=== PATIENT | male | born 1985 | race Caucasian/White ===

== ENCOUNTER 2017-03-10 19:09 | Emergency (ER) | payer SELFPAY ==
[2017-03-10 19:10] VITALS: BP 118/74; PULSE 53; RESP 16; TEMP 97.8; O2SAT 100
--- NOTE | 2017-03-10 20:28 | RADRPT ---
EXAM DATE/TIME: 03/10/2017 19:44 [facility] COMPARISON: No previous studies available for comparison. INDICATIONS : Fall from skateboard today, laceration to posterior head. RADIATION DOSE: 56.35 CTDIvol (mGy) MEDICAL HISTORY : None SURGICAL HISTORY : None. ENCOUNTER: Initial ACUITY: 1 day PAIN SCALE: 6/10 LOCATION: Bilateral occipital head TECHNIQUE: Multiple contiguous axial images were obtained of the head. Using automated exposure control and adj ustment of the mA and/or kV according to patient size, radiation dose was kept as low as reasonably a chievable to obtain optimal diagnostic quality images. DICOM format image data is available electro nically for review and comparison. FINDINGS: CEREBRUM: The ventricles are normal for age. No evidence of midline shift, mass lesion, hemorrhage or acute in farction. No extra-axial fluid collections are seen. POSTERIOR FOSSA: The cerebellum and brainstem are intact. The 4th ventricle is midline. The cerebellopontine angle i s unremarkable. EXTRACRANIAL: The visualized portion of the orbits is intact. SKULL: The calvaria is intact. No evidence of skull fracture. CONCLUSION: 1. No acute intracranial abnormalities. Left maxillary sinusitis. Srikanth Eubanks MD on March 10, 2017 at 20:25 Board Certified Radiologist. This report was verified electronically.
--- NOTE | 2017-03-10 20:30 | RADRPT ---
EXAM DATE/TIME: 03/10/2017 19:47 [facility] COMPARISON: No previous studies available for comparison. INDICATIONS : Fall from skateboard today, laceration to posterior head. RADIATION DOSE: 27.03 CTDIvol (mGy) MEDICAL HISTORY : None SURGICAL HISTORY : None. ENCOUNTER: Initial ACUITY: 1 day PAIN SCALE: 5/10 LOCATION: Bilateral neck TECHNIQUE: Volumetric scanning of the cervical spine was performed. Multiplanar reconstructions in the sagittal, coronal and oblique axial planes were performed. Using automated exposure control and adjustment o f the mA and/or kV according to patient size, radiation dose was kept as low as reasonably achievable to obtain optimal diagnostic quality images. DICOM format image data is available electronically f or review and comparison. FINDINGS: VERTEBRAE: Normal vertebral body height. ALIGNMENT: No evidence of subluxation. C2-C3: The bony spinal canal is normal in size. No evidence of disc bulge or herniation. The neural forami na are bilaterally patent. C3-C4: The bony spinal canal is normal in size. No evidence of disc bulge or herniation. The neural forami na are bilaterally patent. C4-C5: The bony spinal canal is normal in size. No evidence of disc bulge or herniation. The neural forami na are bilaterally patent. C5-C6: The bony spinal canal is normal in size. No evidence of disc bulge or herniation. The neural forami na are bilaterally patent. C6-C7: The bony spinal canal is normal in size. No evidence of disc bulge or herniation. The neural forami na are bilaterally patent. C7-T1: The bony spinal canal is normal in size. No evidence of disc bulge or herniation. The neural forami na are bilaterally patent. CONCLUSION: Normal examination for a patient of this age. Srikanth Eubanks MD on March 10, 2017 at 20:26 Board Certified Radiologist. This report was verified electronically.
--- NOTE | 2017-03-11 00:48 | PD ---
HPI Chief Complaint: Head Injury Time Seen by Provider: 00:47 Travel History International Travel<30 days: No Contact w/Intl Traveler<30days: No Traveled to known affect area: No History of Present Illness HPI The patient is a 31 year old male who presents to the [facility] emergency department with a history of hitting his head while skating at the park at 6: 30PM. He was on a skateboard going down into a pool to do a trick. That is the last thing that he can recall. He reports that he woke up with this had bleeding. He is unsure how long loss of consciousness was for. He reports that he has right buttock pain since the accident. He denies having any difficulty walking or weightbearing. He denies having any numbness or tingling to his extremities. He denies having any weakness of his extremities. He denies having any vomiting. Otherwise on review of systems, he denies having any recent fevers, cough, congestion, chest pain, shortness of breath, abdominal pain,diarrhea, urinary symptoms, or other neurologic symptoms. [facility] Past Medical History Narrative Medical The patient's past medical history is reportedly none. Past Surgical History Surgical History: No Previous Surgery Social History Alcohol Use: Yes (1-2 xper week.) Tobacco Use: No Allergies-Medications (Allergen,Severity, Reaction): Coded Allergies: No Known Allergies (Verified Allergy, Unknown, 06/01/06) Reported Meds & Prescriptions Reported Meds & Active Scripts Active Review of Systems Except as stated in HPI: all other systems reviewed are Neg General / Constitutional: No: Fever Eyes: No: Visual changes HENT: Positive: Headaches, No: Neck Pain Cardiovascular: No: Chest Pain or Discomfort Respiratory: No: Shortness of Breath Gastrointestinal: No: Abdominal Pain Genitourinary: No: Dysuria Musculoskeletal: No: Pain Skin: No Rash Neurologic: No: Weakness Psychiatric: No: Depression Endocrine: No: Polydipsia Hematologic/Lymphatic: No: Easy Bruising Physical Exam Narrative Head and Neck exam: Head is normocephalic with evidence of trauma to the right occiput. A curvilinear laceration is noted that is approximately 4 cm. No step off or crepitus. Eyes: EOMI, pupils are equal round and reactive to light. Nose : Midline septum with pink mucous membranes Mouth: Dentition unremarkable. Moist mucus membranes. Posterior oropharynx is not erythematous. No tonsillar hypertrophy. Uvula midline. Airway patent.Neck: No palpable lymphadenopathy. No nuchal rigidity. No thyromegaly. Cardiovascular: Regular rate and rhythm without murmurs, gallops, or rubs. No pulse deficit to the extremities. Lungs: Clear to auscultation bilaterally. No wheezes, rhonchi, or rales.Abdomen: Soft, without tenderness to palpation in all 4 quadrants of the abdomen. No guarding, rebound, or rigidity. Negative [place] sign. Extremities: No clubbing, cyanosis , or edema. 2+ pulses in all 4 extremities.Back: No spinous process tenderness to palpation. No stepoff or crepitus. He has left buttock TTP. No erythema or ecchymosis. No costovertebral angle tenderness to palpation.Neurologic Exam: Cranial nerves 2-12 were intact on exam. Strength is 5/5 in all 4 extremities. No sensory deficits noted. He has a normal steady gait. Skin Exam: No rash noted. Intact skin that is warm and dry. Data Data Last Documented VS Vital Signs Date Time Temp Pulse Resp B/P (MAP) Pulse Ox O2 Delivery O2 Flow Rate FiO2 03/11/17 02:25 03/10/17 19:10 97.8 53 16 100 Room Air Orders Orders Ct Brain W/O Iv Contrast(Rout) (03/10/17 ) Ct Cerv Spine W/O Contrast (03/10/17 ) [id number] (Booster) Inj (Boostrix (03/11/17 02:15) Cephalexin (Keflex) (03/11/17 02:15) Acetaminophen (Tylenol) (03/11/17 02:15) MDM Medical Decision Making Medical Screen Exam Complete: Yes Emergency Medical Condition: Yes Medical Record Reviewed: Yes Interpretation(s) Last Impressions Head CT 03/10/17 0000 Signed Impressions: Service Date/Time: Friday, March 10, 2017 19:44 - CONCLUSION: 1. No acute intracranial abnormalities. Left maxillary sinusitis. Srikanth Eubanks MD Cervical Spine CT 03/10/17 0000 Signed Impressions: Service Date/Time: Friday, March 10, 2017 19:47 - CONCLUSION: Normal examination for a patient of this age. Srikanth Eubanks MD Differential Diagnosis Intracranial hemorrhage, versus cervical spine injury, versus scalp laceration, versus scalp contusion Narrative Course During the course of the patients emergency department visit, the patients history, examination, and differential diagnosis were reviewed with the patient. The patient was placed on a division supervisor with oximetry and frequent blood pressure monitoring. The patient had a CT scan of the head and neck ordered. The patient was initially provided an update his tetanus as he reports that it is not up-to-date. Keflex 500 by mouth 1. Tylenol for headache. The nurse practitioner, Taisha Pineda was consultative for wound irrigation and repair. She repaired the wound. Radiology studies were reviewed and remarkable for a CT scan of the brain that shows no acute intracranial abnormality, left maxillary sinusitis. CT scan of the C-spine shows no acute abnormality. The patient is resting comfortably and feels better, is alert and in no distress. The patients results and examination findings were discussed with the patient. The repeat examination is unremarkable and benign. The history, exam, diagnostic testing, and current condition do not suggest any significant pathology to warrant further testing, continued ED treatment, admission, or surgical evaluation at this point. The vital signs have been stable. The patient does not have uncontrollable pain, intractable vomiting, or other significant symptoms. The patient's condition is stable and appropriate for discharge. The patient will pursue further outpatient evaluation with a primary care physician or other designated or consulting physician as indicated in the discharge instructions. The patient expressed understanding and was agreeable with this plan. Diagnosis Primary Impression: Head injury Qualified Codes: S09.90XA - Unspecified injury of head, initial encounter Additional Impression: Occipital scalp laceration Qualified Codes: S01.01XA - Laceration without foreign body of scalp, initial encounter Referrals: [facility] 2 days Patient Instructions: General Instructions, Head Injury (ED) Departure Forms: Tests/Procedures, Work Release Enter return to work date: Mar 13, 2017 Med/Other Pt SpecificInfo: No Meds Exist/No RX given Disposition: 01 DISCHARGE HOME Condition: Stable Mariama Pulido MD Mar 11, 2017 00:48
[2017-03-11] MEDS ORDERED: ACETAMINOPHEN 325 MG TAB PO ONE (02:15)
[2017-03-11] MEDS ORDERED: DIPHTH/TETANUS/ACEL PERTUSSIS (BOOSTER) 0.5 ML VIAL/PFS IM ONE (02:15)
[2017-03-11] MEDS ORDERED: CEPHALEXIN MONOHYDRATE 500 MG CAP PO ONE (02:15)
--- NOTE | 2017-03-11 05:08 | PD ---
Physical Exam Time Seen by Provider: 05:07 Data Data Last Documented VS Vital Signs Date Time Temp Pulse Resp B/P (MAP) Pulse Ox O2 Delivery O2 Flow Rate FiO2 03/11/17 02:25 03/10/17 19:10 97.8 53 16 100 Room Air Orders Orders Ct Brain W/O Iv Contrast(Rout) (03/10/17 ) Ct Cerv Spine W/O Contrast (03/10/17 ) [id number]-Pkrtmt (Booster) Inj (Boostrix (03/11/17 02:15) Cephalexin (Keflex) (03/11/17 02:15) Acetaminophen (Tylenol) (03/11/17 02:15) MDM Medical Record Reviewed: Yes Supervised Visit with CHRISSIE: No Procedures Procedure Narrative LACERATION LOCATION: Posterior scalp LENGTH: 4 centimeter NUMBER OF STITCHES/RAHEL: 4 [place] REPAIR: The area of the laceration was prepped with Betadine and sterilely draped. The wound was copiously irrigated and explored without evidence of foreign body, tendon injury or neurovascular injury. The wound was closed using rahel. This was a single layer repair. A sterile dressing was applied. The patient was advised to keep the dressing clean and dry. Patient tolerated the procedure well. Diagnosis Primary Impression: Head injury Additional Impression: Occipital scalp laceration Referrals: [facility] 2 days Patient Instructions: General Instructions, Head Injury (ED) Departure Forms: Work Release, Enter return to work date: Tests/Procedures Disposition: 01 DISCHARGE HOME Condition: Stable Taisha Cardoso CASIMIRO Mar 11, 2017 05:08
== END 2017-03-11 02:32 | disposition home or self-care (01) ==
LOC: NEPC 19:09
DX: S01.01XA Laceration without foreign body of scalp, initial encounter (principal)
CPT/HCPCS: 12002; 70450; 72125; 90471; 90715

== ENCOUNTER 2017-03-20 17:40 | Emergency (ER) | payer SELFPAY ==
[~2017-03-20] VITALS: Ht 170.2 cm; Wt 95.0 kg
[2017-03-20 17:50] VITALS: BP 130/80; PULSE 51; RESP 14; TEMP 98.2; O2SAT 100
--- NOTE | 2017-03-20 20:18 | PD ---
HPI Chief Complaint: Wound/Suture/Staple Re-Check Time Seen by Provider: 20:09 Travel History International Travel<30 days: No Contact w/Intl Traveler<30days: No Traveled to known affect area: No History of Present Illness HPI 31-year-old male presents for staple removal. He was seen here on March 10 with an occipital scalp laceration which was repaired with madeleine. He reports that he has slight residual itchiness at the site of laceration. Denies any pain or headache. He has been washing the wound with soap and water. He has no other complaints. [facility] Social History Alcohol Use: Yes (1-2 xper week.) Tobacco Use: No Substance Use: No Allergies-Medications (Allergen,Severity, Reaction): Coded Allergies: No Known Allergies (Verified Allergy, Unknown, 06/01/06) Reported Meds & Prescriptions Reported Meds & Active Scripts Active Review of Systems Eyes: No: Diploplia, Blurred Vision HENT: No: Headaches Skin: Positive Itching Neurologic: No: Dizziness, Headache Physical Exam Narrative GENERAL: Well-nourished male in no acute distress SKIN: Warm and dry. Well-healing occipital scalp laceration with [address] Mild scabbing. No wound dehiscence or erythema or drainage. HEAD: Skin as noted above normocephalic. EYES: Pupils equal and round. No scleral icterus. No injection or drainage. ENT: No nasal bleeding or discharge. Mucous membranes pink and moist. Data Data Last Documented VS Vital Signs Date Time Temp Pulse Resp B/P (MAP) Pulse Ox O2 Delivery O2 Flow Rate FiO2 03/20/17 17:50 98.2 51 14 130/80 (97) 100 Orders Orders Ed Discharge Order (03/20/17 20:15) MDM Medical Decision Making Medical Screen Exam Complete: Yes Emergency Medical Condition: Yes Medical Record Reviewed: Yes Differential Diagnosis Staple removal, wound dehiscence, infected wound Narrative Course Madeleine were removed without incident. Diagnosis Primary Impression: Removal of madeleine Med/Other Pt SpecificInfo: Wound Care Disposition: 01 DISCHARGE HOME Condition: Stable Thom Gauthier Mar 20, 2017 20:18
== END 2017-03-20 20:34 | disposition home or self-care (01) ==
LOC: NEPK 17:40
DX: Z48.02 Encounter for removal of sutures (principal); L29.9 Pruritus, unspecified
CPT/HCPCS: 99281